=== PATIENT | male | born 1960 | race Caucasian/White ===

== ENCOUNTER 2023-06-03 10:58 | Outpatient (REF) | payer MEDICAID, SELFPAY ==
[2023-06-03 15:17] LABS: Alanine Aminotransferase 41 U/L (0-40); Albumin Level 4.3 g/dL (3.5-5.0); Alkaline Phosphatase 77 U/L (39-117); Anion Gap 12 (12-20); Aspartate Amino Transferase 25 U/L (5-37); Bilirubin Direct 0.3 mg/dL (0.0-0.5); Bilirubin Total 0.8 mg/dL (0.0-1.0); Blood Urea Nitrogen 24 mg/dL (9-16); Calcium 9.6 mg/dL (8.4-10.2); Carbon Dioxide 28 mmol/L (22-29); Chloride 105 mmol/L (96-108); Cholesterol 159 mg/dL (<200); Estimated Glomerular Filt Rate > 60; Glucose Random 86 mg/dL (60-115); HDL Cholesterol 42 mg/dL (>40); LDL Cholesterol Calculated 89 mg/dL (<100); Potassium 3.9 mmol/L (3.3-5.1); Sodium 141 mmol/L (135-145); Total Protein 7.4 g/dL (6.5-8.0); Triglycerides 141 mg/dL (<150)
== END 2023-06-03 10:59 | disposition home or self-care (01) ==
LOC: HO.CHCLDS 10:58
PROVIDERS: Visit Provider Student in an Organized Health Care Education/Training Program
DX: E78.00 Pure hypercholesterolemia, unspecified (principal)
CPT/HCPCS: 36415; 80048; 80061; 80076

== ENCOUNTER 2023-08-06 10:29 | Outpatient (REF) | payer MEDICAID, SELFPAY ==
[2023-08-06 14:58] LABS: Alanine Aminotransferase 32 U/L (0-40); Albumin Level 4.2 g/dL (3.5-5.0); Alkaline Phosphatase 70 U/L (39-117); Anion Gap 9 (12-20); Aspartate Amino Transferase 26 U/L (5-37); Bilirubin Direct 0.5 mg/dL (0.0-0.5); Bilirubin Total 1.7 mg/dL (0.0-1.0); Blood Urea Nitrogen 15 mg/dL (9-16); Carbon Dioxide 30 mmol/L (22-29); Chloride 107 mmol/L (96-108); Cholesterol 152 mg/dL (<200); Estimated Glomerular Filt Rate > 60; Glucose Random 86 mg/dL (60-115); HDL Cholesterol 46 mg/dL (>40); LDL Cholesterol Calculated 88 mg/dL (<100); Sodium 142 mmol/L (135-145); Triglycerides 93 mg/dL (<150)
[2023-08-07 06:40] LABS: ~HepC Num1 0.09 S/CO (0.00-0.79); ~Hepatitis C Antibody Nonreactive (Nonreactive)
[2023-08-09 17:14] LABS: HIV RNA PCR Qn Copies Not Detected Copies/mL; HIV RNA PCR Qn Log Copies Not Detected Log cps/mL
== END 2023-08-06 10:30 | disposition home or self-care (01) ==
LOC: HO.CHCLDS 10:29
PROVIDERS: Visit Provider Student in an Organized Health Care Education/Training Program
DX: Z00.00 Encounter for general adult medical examination without abnormal findings (principal); E78.00 Pure hypercholesterolemia, unspecified
CPT/HCPCS: 36415; 80048; 80061; 80076; 86803; 87536; 87900

== ENCOUNTER 2024-04-12 09:11 | Outpatient (REF) | payer MEDICAID, SELFPAY ==
[2024-04-12 15:55] LABS: Alanine Aminotransferase 54 U/L (0-40); Albumin Level 4.1 g/dL (3.5-5.0); Alkaline Phosphatase 73 U/L (39-117); Anion Gap 15 (12-20); Aspartate Amino Transferase 43 U/L (5-37); Bilirubin Direct 0.3 mg/dL (0.0-0.5); Bilirubin Total 1.1 mg/dL (0.0-1.0); Blood Urea Nitrogen 24 mg/dL (9-16); Calcium 9.3 mg/dL (8.4-10.2); Carbon Dioxide 25 mmol/L (22-29); Chloride 110 mmol/L (96-108); Cholesterol 181 mg/dL (<200); Estimated Glomerular Filt Rate > 60; Glucose Random 88 mg/dL (60-115); HDL Cholesterol 51 mg/dL (>40); LDL Cholesterol Calculated 93 mg/dL (<100); Potassium 3.6 mmol/L (3.3-5.1); Sodium 146 mmol/L (135-145); Total Protein 6.7 g/dL (6.5-8.0); Triglycerides 187 mg/dL (<150)
== END 2024-04-12 09:12 | disposition home or self-care (01) ==
LOC: HO.CHCLDS 09:11
PROVIDERS: Visit Provider Student in an Organized Health Care Education/Training Program
DX: E78.00 Pure hypercholesterolemia, unspecified (principal); R03.0 Elevated blood-pressure reading, without diagnosis of hypertension
CPT/HCPCS: 36415; 80048; 80061; 80076

== ENCOUNTER 2024-08-17 11:18 | Outpatient (REF) | payer MEDICAID, SELFPAY ==
--- OUTSIDE RECORDS SUMMARY | 2024-08-17 13:50 | XMS_ITS | Encounter Summary ---
Author Organization [employer] Address [address] [place] [address] [place] [address] Care Team Providers Care Public Transit Trolley Driver Name Role Phone Belia Blum MD Primary Care Provider [phone] Encounter Details Date Type Department Care Team (Latest Contact Info) Description 04/03/2021 Abstract [facility] Dental, Provider, DDS Social History Tobacco Use Types Packs/Day Years Used Date Smoking Tobacco: Never Assessed Sex and Gender Information Value Date Recorded Sex Assigned at Male 03/11/2022 10:30 AM EDT Legal Sex Male 10:30 AM EDT Gender Identity Male 03/11/2022 10:30 AM EDT Sexual Orientation Straight 03/11/2022 10 :30 AM EDT documented as of this encounter Plan of Treatment Upcoming Encounters Date Type Department Care Team (Late st Contact Info) Description 09/09/2024 9:00 AM EDT Office Visit [facility] [address] [place] [address] Kriss Bonilla 11/08/2024 10:45 AM EDT Clinical Support [facility] [address] [place] [address] documented as of this encounter Visit Diagnoses Not on filedocumented in this encounter Care Teams Public Transit Trolley Driver Relationship Specialty Start Date End Date Belia Blum MD [address] [place] [phone] PCP - General Family Medicine 03/20/16 documented as of this encounter
--- OUTSIDE RECORDS SUMMARY | 2024-08-17 13:50 | XMS_ITS | Clinical Summary ---
Author Organization [employer] Address [address] [place] [address] 7 [place] [address] Care Team Providers Care Inventory Audit Clerk Name Role Phone Belia Blum MD Primary Care Provider [phone] Allergies No known active allergies Medications acetaminophen (Tylenol) 325 MG capsule Take 2 capsules by mouth every 4 (four) hours if needed for pain. 1 Active atorvastatin (Lipitor) 40 MG tablet TAKE 1 TABLET BY MOUTH EVERY DAY 90 tablet 3 4 Active meloxicam (Mobic) 15 MG tablet Take 1 tablet (15 mg) by mouth Once per day. 30 tablet 11 4 04/12/20 25 Active Aspirin Low Dose 81 MG EC tablet Take 1 tablet (81 mg) by mouth Once per day. 90 tablet 3 4 04/12/20 25 Active meclizine (Antivert) 25 MG tablet TAKE ONE TABLET BY MOUTH TWICE DAILY 180 tablet 3 5 Active lisinopril 10 MG tablet Take 1 tablet (10 mg) by mouth Once per day. 30 tablet 11 5 08/17/19 26 Active aspirin 81 MG EC tablet Take 1 tablet (81 mg) by mouth in the morning. 30 tablet 11 4 08/06/19 25 Active Problems Problem Noted Date Diagnosed Date Metal foreign body in head 06/03/2023 Vertigo 06/03/2023 Hypercholesterolemia 06/03/2023 Encounters Date Type Department Care Team Description 08/16/2024 11:00 AM EDT Office Visit [facility] [address] [facility] [place] [address] Belia Blum MD Primary hypertension (Primary Dx); Hypercholesterolemia 08/16/2024 Telephone [facility] [address] [facility] [place] [address] Belia Blum MD P1 08/16/2024 Travel 08/06/2024 Patient Outreach [facility] [address] [place], [place] [phone] Belia Blum MD Pre-visit Planning (Pre visit planning LVM ) 06/21/2024 Telephone [facility] [address] [facility] [place] [address] Belia Blum MD Nurse Triage 06/11/2024 Refill [facility] [address] [facility] [place] [address] Belia Blum MD from Last 3 Months Immunizations Name Administration Dates Next Due Influenza injectable quadriv alent IIV4 with preservative 03/20/2016 Influenza injectable quadriv alent preservative free 06/03/2023,04/19/2020,02/27/2017 Influenza, seasonal, injecta ble, preservative free 04/12/2024 MMR 08/06/2023 Tdap 02/27/2017 Varicella 08/06/2023 Social History Tobacco Use Types Packs/Day Years Used Date Smoking Tobacco: Some Days Cigarettes Smokeless Tobacco: Never Tobacco Cessation:Ready to Q uit: Not Asked; Counseling Given: Not Answered Housing Stability Answer Date Recorded What is your housing situation today? I have jericho echevarria 05/27/[address] you li ve. Do you have problems with any of the following? None of the above 05/27/2023 Food Insecurity Answer Date Recorded Within the past 12 months, y ou worried that your food would run out before you got money to buy more: Never True 05/27/2023 Within the past 12 months,th e food you bought just didn't last and you didn't have enough money to get more: Never True Transportation Answer Date Recorded In the past 12 months, has l ack of transportation kept you from medical appts, meetings, work or from getting things needed for daily living? No 05/27/2023 Utilities Answer Date Recorded In the past 12 months, has t he electric, gas, oil or water company threatened to shut off services in your home? No 05/27/2023 Internet Access Answer Date Recorded Internet Access Q1 No 04/12/2024 Internet Access Q2 I do not want or need it 06/2023 Sex and Gender Information Value Date Recorded Sex Assigned at Male 03/11/2022 10:30 AM EDT Legal Sex Male 10:30 AM EDT Gender Identity Male 03/11/2022 10:30 AM EDT Sexual Orientation Straight 03/11/2022 10 :30 AM EDT Last Filed Vital Signs Vital Sign Reading Time Taken Comments Blood Pressure 158/98 08/16/2024 11:00 AM EDT Manually checked Pulse 68 08/16/2024 11:00 AM EDT Temperature 36.7 ??C (98 ??F) 08/16/2024 11: 00 AM EDT Respiratory Rate 18 08/16/2024 11:0 0 AM EDT Oxygen Saturation 98% 08/06/2023 9:2 3 AM EDT Inhaled Oxygen Concentration - - Weight 86.6 kg (191 lb) 08/16/2024 11:0 0 AM EDT Height 166.4 cm (5' 5.5 ) 08/16/2024 11 :00 AM EDT Body Mass Index 31.3 08/16/2024 11:00 AM EDT Plan of Treatment Upcoming Encounters Date Type Department Care Team (Late st Contact Info) Description 09/09/2024 9:00 AM EDT Office Visit [facility]ULT D[facility] [address] [place] [address] Kriss Bonilla 11/08/2024 10:45 AM EDT Clinical Support [facility] [address] [place] [address] Health Maintenance Due Date Last Done Comments CT Colonography 1959 Colonoscopy 1959 Depression Screening 1959 FIT 1959 FOBT 1959 Sigmoidoscopy 1959 Pneumococcal Vaccine: 50+ Years (1 of 2 - PCV) 08/13/1978 Zoster Vaccines (1 of 2) 10/01/2023 COVID-19 Vaccine (4 - 2023- season) 2024 09/09/2023, 09/11/2020, 08/21/2020 Alcohol/Substance Use Screening 04/12/2025 04/12/2024 SDOH Screening 04/12/2025 04/12/2024 Tobacco Screening 08/16/2025 08/16/2024 Colorectal Cancer Screening 06/16/2026 FIT DNA/Cologuard 06/16/2026 06/16/2023 DTaP/Tdap/Td Vaccines (2 - Td or Tdap) 02/27/2027 02/27/2017 Lipid Panel 04/12/2029 04/12/2024, 07/11, 06/03/2023 RSV Patients and Patients Aged 60 years or older (1 - 1-dose 75+ series) 08/13/2034 Hepatitis C Screening Completed 08/06/2023 Influenza Vaccine Completed 04/12/2024, , 04/19/2020, Additional history exists HIB Vaccines Aged Out No longer eligi ble based on patient's age to complete this topic HPV Vaccines Aged Out No longer eligi ble based on patient's age to complete this topic Hepatitis A Vaccines Aged Out No long er eligible based on patient's age to complete this topic Hepatitis B Vaccines Aged Out No long er eligible based on patient's age to complete this topic IPV Vaccines Aged Out No longer eligi ble based on patient's age to complete this topic Meningococcal Vaccine Aged Out No meghan melquiades eligible based on patient's age to complete this topic RSV under 20 months Aged Out No longe r eligible based on patient's age to complete this topic Rotavirus Vaccines Aged Out No longer eligible based on patient's age to complete this topic Procedures Procedure Name Priority Date/Time Associated Diagnosis Comments LIPID PANEL, STANDARD Routine 04/12/2024 9:12 AM EST Hypercholesterolemia Elevated BP without diagnosis of hypertension HEPATITIS C AB W/REFL TO HCV RNA, QN, PCR Routine 08/06/2023 10:31 AM EDT PE (physical exam), annual LAB COLOGUARD?? COLON CANCER SCREEN Routine 06/16/2023 12:15 AM EST Encounter for screening for malignant neoplasm of colon from Last 3 Months or Most Recently Relevant to Health Maintenance Results * (ABNORMAL) Lipid Panel, Standard (04/12/2024 9:12 AM EST) Triglycerides 187(H) <150 mg/dL [facility] Comment:Desirable Triglyceri de: less than 150 mg/dLBorderline High Triglyceride 150-199 mg/dLHigh Triglyceride: 200-499 mg/dLVery High Triglyceride: greater than or equal to 5OO mg/dL Cholesterol 181 <200 mg/dL [facility] Comment:Desirable Cholestero l: less than 200 mg/dLBorderline High Cholesterol: 200-239 mg/dLHigh Cholesterol: greater than 239 mg/dL LDL Cholesterol Calculated 93 <100 mg/dL [facility] Comment:Desirable LDL: less than 100 mg/dLNear Optimal/Above Optimal LDL: 110- 129 mg/dLBorderline High LDL: 130-159 mg/dLHigh LDL: 160-189 mg/dLVery High LDL: greater than or equal to 190 mg/dL HDL Cholesterol 51 >40 mg/dL [facility] Comment:Desirable HDL: great er than 40 mg/dL Note: This HDL assay may give artificially low results in patients with liver disease. Blood Venous blood specimen / Unknown 04/12/2024 9:12 AM EST 04/12/2024 2:28 PM EST us Belia Blum MD LAB BLOOD ORDERABLES Final Resul t [facility] [address] [place] [phone] * Hepatitis C Antibody with Reflex to HCV, RNA, Quantitative, Real-Time PCR (08/06/2023 10:31 AM EDT) Hepatitis C Antibody Nonreactive Nonreactive [facility] Comment:Antibodies to HCV no t detected; does not exclude early acuteHCV infection. Blood Venous blood specimen / Unknown 08/06/2023 10:31 AM EDT 08/06/2023 2:36 PM EDT us Belia Blum MD LAB BLOOD ORDERABLES Final Resul t [facility] [address] [place] [phone] * Cologuard?? colon cancer screening (06/16/2023 12:15 AM EST) Cologuard Result Negative Negative 06/25/19 9:48 AM EST [facility] (CLIA #:[id number]) Comment: NEGATIVE TEST RESULT. A negative Cologuard result indicates a low likelihood that a colorectal cancer (CRC) or advanced adenoma (adenomatous polyps with more advanced pre-malignant features) ??is present. The chance that a person with a negative Cologuard test has a colorectal cancer is less than 1 in 1500 (negative predictive value >99.9%) or has an ??advanced adenoma is less than ??5.3% (negative predictive value 94.7%). These data are based on a prospective cross-sectional study of 10,000 individuals at average risk for colorectal cancer who were screened with both Cologuard and colonoscopy. (Lilyialluma T. et al, N Engl J Med 2014;370(14):1286- 1297) The normal value (reference range) for this assay is negative. COLOGUARD RE-SCREENING RECOMMENDATION: Periodic colorectal cancer screening is an important part of preventive healthcare for asymptomatic individuals at average risk for colorectal cancer. ??Following a negative Cologuard result, the [employer] [employer] Society and U.S. Multi-Society Task Force screening guidelines recommend a Cologuard re-screening interval of 3 years. References: [employer] [employer] Guideline for Colorectal Cancer Screening: https://www.cancer.org/cancer/hsasg-zpzzod-bonyte/zzqilzmlk-fainqoamh-waqchiz/ac s-rec ommendations.html.; Luís CHAN, Ronn ROGEL, Harpreet FrancoK, Colorectal Cancer Screening: Recommendations for Physicians and Patients from the U.S. Multi-Society Task Force on Colorectal Cancer Screening , Am J Gastroenterology 2017; 112:0663-7929. TEST DESCRIPTION: Composite algorithmic analysis of stool DNA-biomarkers with hemoglobin immunoassay. ?? Quantitative values of individual biomarkers are not reportable and are not associated with individual biomarker result reference ranges. Cologuard is intended for colorectal cancer screening of adults of either sex, 45 years or older, who are at average-risk for colorectal cancer (CRC). Cologuard has been approved for use by the U.S. FDA. The performance of Cologuard was established in a cross sectional study of average-risk adults aged 50-84. Cologuard performance in patients ages 45 to 49 years was estimated by sub-group analysis of near-age groups. Colonoscopies performed for a positive result may find as the most clinically significant lesion: colorectal cancer [4.0%], advanced adenoma (including sessile serrated polyps greater than or equal to 1cm diameter) [20%] or non- advanced adenoma [31%]; or no colorectal neoplasia [45%]. These estimates are derived from a prospective cross-sectional screening study of 10,000 individuals at average risk for colorectal cancer who were screened with both Cologuard and colonoscopy. (Lino Brandt. et al, N Engl J Med 2014;370(14):4855-1632.) Cologuard may produce a false negative or false positive result (no colorectal cancer or precancerous polyp present at colonoscopy follow up). A negative Cologuard test result does not guarantee the absence of CRC or advanced adenoma (pre-cancer). The current Cologuard screening interval is every 3 years. ([place] [employer] and U.S. Multi-Society Task Force). Cologuard performance data in a 10,000 patient pivotal study using colonoscopy as the reference method can be accessed at the following location: www.GOOM/results. Additional description of the Cologuard test process, warnings and precautions can be found at www.Hythiamrd.com. Stool specimen (specimen) 06/16/2023 12:15 AM EST 06/17/2023 10:49 AM EST us Belia Blum MD LAB MOLECULAR DIAGNOSTICS ORDERA BLEJena Final Result [facility] (CLIA #:[id number]) [place] [place] [address], [place] [phone] from Last 3 Months or Most Recently Relevant to Health Maintenance Insurance [employer] [facility] MEDICAID STAND ADULT Care Teams Inventory Audit Clerk Relationship Specialty Start Date End Date Belia Blum MD [address] [place] [phone] PCP - General Family Medicine 03/20/16
--- OUTSIDE RECORDS SUMMARY | 2024-08-17 13:51 | XMS_ITS | Encounter Summary ---
Author Organization [employer] Address [address] [place] [address] [place] [address] Care Team Providers Care Care Program Director Name Role Phone Belia Blum MD Primary Care Provider [phone] Reason for Visit * Reason Onset Date Comments Med Refill 09/08/2023 Encounter Details Date Type Department Care Team ([facility] st Contact Info) Description 09/08/2023 Refill [facility] [address] [place], [place] [phone] Belia Blum MD [address] [place] [address] Social History Tobacco Use Types Packs/Day Years Used Date Smoking Tobacco: Some Days Cigarettes Smokeless Tobacco: Never Housing Stability Answer Date Recorded What is your housing situation today? I have jericho swathi 05/27/[address] you li [...] off services in your home? No 05/27/2023 Sex and Gender Information Value Date Recorded Sex Assigned at Male 03/11/2022 10:30 AM EDT Legal Sex Male 10:30 AM EDT Gender Identity Male 03/11/2022 10:30 AM EDT Sexual Orientation Straight 03/11/2022 10 :30 AM EDT documented as of this encounter Plan of Treatment Upcoming Encounters Date Type Department Care Team (Late st Contact Info) Description 09/09/2024 9:00 AM EDT Office Visit [facility] ADULT D[facility] [address] [place] [address] Kriss Bonilla 11/08/2024 10:45 AM EDT Clinical Support [facility] [address] [place] [address] documented as of this encounter Visit Diagnoses Not on filedocumented in this encounter Care Teams Care Program Director Relationship Specialty Start Date End Date Belia Blum MD [address] [place] [address] PCP - General Family Medicine 03/20/16 documented as of this encounter
--- OUTSIDE RECORDS SUMMARY | 2024-08-17 13:51 | XMS_ITS | Encounter Summary ---
Author Organization [employer] Address [address] [place] [address] 7[place], [place] [address] Care Team Providers Care Diesel Instructor Name Role Phone Belia Blum MD Primary Care Provider Reason for Visit * Reason Onset Date Comments P1 08/16/2024 Encounter Details Date Type Department Care Team ([facility] st Contact Info) Description 08/16/2024 Telephone [facility] MED & PEDS [address] [place], [place] [phone] Belia Blum MD [address] [place] [address] P1 Social History Tobacco Use Types Packs/Day Years Used Date Smoking Tobacco: Some Days Cigarettes Smokeless Tobacco: Never Housing Stability Answer Date Recorded What is your housing situation today? I have jerichorima echevarria 05/27/[address] you [...] AM EDT documented as of this encounter Miscellaneous Notes * Telephone Encounter - Lucia Ha - 08/16/2024 10:51 AM EDT Patient in requesting for PT 1 to be renewed for [facility] and [facility]. Pt has appt coming up soon. documented in this encounter Plan of Treatment Upcoming Encounters Date Type Department Care Team (Late st Contact Info) Description 09/09/2024 9:00 AM EDT Office Visit [facility] ADULT DENTAL [address] [place] [address] Kriss Bonilla 11/08/2024 10:45 AM EDT Clinical Support [facility] MED & PEDS [address] [place] [address] documented as of this encounter Visit Diagnoses Not on filedocumented in this encounter Care Teams Diesel Instructor Relationship Specialty Start Date End Date Belia Blum MD [address] [place] [phone] PCP - General Family Medicine 03/20/16 documented as of this encounter
--- OUTSIDE RECORDS SUMMARY | 2024-08-17 13:51 | XMS_ITS | Encounter Summary ---
Author Organization [employer] Address [address] [place] [address] 7 [place] [address] Care Team Providers Care Garde Manger Name Role Phone Belia Blum MD Primary Care Provider Reason for Visit * Reason Comments chronic conditions Encounter Details Date Type Department Care Team ([facility] st Contact Info) Description 08/16/2024 11:00 AM EDT Office Visit [facility] & PEDS [address] [place], [place] [phone] Belia Blum MD [address] [place] [address] Primary hypertension (Primary Dx); Hypercholesterolemia Social History Tobacco Use Types Packs/Day Years [...] AM EDT documented as of this encounter Last Filed Vital Signs Vital Sign Reading Time Taken Comments Blood Pressure 158/98 08/16/2024 11:00 AM EDT Manually checked Pulse 68 08/16/2024 11:00 AM EDT Temperature 36.7 ??C (98 ??F) 08/16/2024 11: 00 AM EDT Respiratory Rate 18 08/16/2024 11:0 0 AM EDT Oxygen Saturation - - Inhaled Oxygen Concentration - - Weight 86.6 kg (191 lb) 08/16/2024 11:0 0 AM EDT Height 166.4 cm (5' 5.5 ) 08/16/2024 11 :00 AM EDT Body Mass Index 31.3 08/16/2024 11:00 AM EDT documented in this encounter Progress Notes * Belia Blum MD - 08/16/2024 11:00 AM EDT Subjective Patient ID: Gabriel Ace is a 64 y.o. male who presents for chronic conditions. Hypertension This is a new problem. The current episode started more than 1 year ago. The problem is uncontrolled. Pertinent negatives include no anxiety, blurred vision, chest pain, headaches, malaise/fatigue, neck pain, orthopnea, palpitations, peripheral edema, PND, shortness of breath or sweats. Risk factors for coronary artery disease include family history, obesity and sedentary lifestyle. Past treatments include nothing. Review of Systems Constitutional: Negative. Negative for malaise/fatigue. Eyes: Negative for blurred vision. Respiratory: Negative. Negative for shortness of breath. Cardiovascular: Negative. Negative for chest pain, palpitations, orthopnea and PND. Gastrointestinal: Negative. Genitourinary: Negative. Musculoskeletal: Negative for neck pain. Neurological: Negative for headaches. Objective Physical Exam Constitutional: Appearance: Normal appearance. Cardiovascular: Rate and Rhythm: Normal rate and regular rhythm. Pulmonary: Effort: Pulmonary effort is normal. Breath sounds: Normal breath sounds. Neurological: General: No focal deficit present. Mental Status: He is alert. Psychiatric: Mood and Affect: Mood normal. Behavior: Behavior normal. Assessment/Plan Diagnoses and all orders for this visit: Primary hypertension Comments: Started On lisinopril 10mg daily Cont Aspirin Maintain a low-sodium diet (less than 2 grams per day). Maintain a regular cardiovascular exercise program. Advised to maintain a low-fat, low-cholesterol diet. Counseled regarding importance of weight loss. Counseled re: potential co-morbidities including cardiovascular disease. Orders: - Basic Metabolic Panel; Future - Lipid Panel, Standard; Future - Hepatic Function Panel; Future Hypercholesterolemia Comments: Cont Lipitor Advised to maintain a low-fat, low-cholesterol diet. Other orders - lisinopril 10 MG tablet; Take 1 tablet (10 mg) by mouth Once per day. documented in this encounter Plan of Treatment Upcoming Encounters Date Type Department Care Team (Late st Contact Info) Description 09/09/2024 9:00 AM EDT Office Visit [facility] ADULT D[facility] [address] [place] [address] Kriss Bonilla 11/08/2024 10:45 AM EDT Clinical Support [facility] MED & PED[facility] [address] [place] [address] Scheduled Orders Name Type Priority Associated Diagnoses Orde r Schedule Basic Metabolic Panel Lab Routine Primary hypertension Expected: 08/16/2024 (Approximate), Expires: 08/16/2025 Lipid Panel, Standard Lab Routine Primary hypertension Expected: 08/16/2024 (Approximate), Expires: 08/16/2025 Hepatic Function Panel Lab Routine Primary hypertension Expected: 08/16/2024 (Approximate), Expires: 08/16/2025 documented as of this encounter Visit Diagnoses Diagnosis Primary hypertension- Primary Unspecified essential hypertension Hypercholesterolemia Pure hypercholesterolemia documented in this encounter Care Teams Garde Manger Relationship Specialty Start Date End Date Belia Blum MD [address] [place] [phone] PCP - General Family Medicine 03/20/16 documented as of this encounter
--- OUTSIDE RECORDS SUMMARY | 2024-08-17 13:51 | XMS_ITS | Encounter Summary ---
Author Organization [employer] Address [address] [facility] [address] [place] [address] Care Team Providers Care Habitat Management Coordinator Name Role Phone Belia Blum MD Primary Care Provider [phone] Encounter Details Date Type Department Care Team (Latest Contact Info) Description 08/16/2024 Travel Social History Tobacco Use Types Packs/Day Years [...] 9:00 AM EDT Office Visit [facility] ADULT [facility] [address] [place] [address] Kriss Bonilla 11/08/2024 10:45 AM EDT Clinical Support [facility] PED[facility] [address] [place] [address] documented as of this encounter Visit Diagnoses Not on filedocumented in this encounter Care Teams Habitat Management Coordinator Relationship Specialty Start Date End Date Belia Blum MD [address] [place] [id number] PCP - General Family Medicine 03/20/16 documented as of this encounter
[2024-08-17 14:35] LABS: Alanine Aminotransferase 31 U/L (0-40); Albumin Level 3.9 g/dL (3.5-5.0); Anion Gap 10 (12-20); Aspartate Amino Transferase 31 U/L (5-37); Bilirubin Direct 0.4 mg/dL (0.0-0.5); Bilirubin Total 1.5 mg/dL (0.0-1.0); Blood Urea Nitrogen 18 mg/dL (9-16); Calcium 8.9 mg/dL (8.4-10.2); Carbon Dioxide 29 mmol/L (22-29); Chloride 108 mmol/L (96-108); Cholesterol 118 mg/dL (<200); Estimated Glomerular Filt Rate > 60; Glucose Random 100 mg/dL (60-115); HDL Cholesterol 41 mg/dL (>40); LDL Cholesterol Calculated 60 mg/dL (<100); Potassium 4.1 mmol/L (3.3-5.1); Sodium 143 mmol/L (135-145); Total Protein 6.4 g/dL (6.5-8.0); Triglycerides 89 mg/dL (<150)
[2024-08-17 14:46] LABS: Alkaline Phosphatase 72 U/L (39-117)
== END 2024-08-17 11:19 | disposition home or self-care (01) ==
LOC: HO.CHCLDS 11:18
PROVIDERS: Visit Provider Student in an Organized Health Care Education/Training Program
DX: I10 Essential (primary) hypertension (principal)
CPT/HCPCS: 36415; 80048; 80061; 80076